=== PATIENT | female | born 1975 | race Hispanic/Latino ===

== ENCOUNTER 2018-11-24 07:34 | Emergency (ER) | payer OTHER ==
--- NOTE | 2018-11-24 07:35 | C.PDOC ---
History Of Present Illness 43 yr old F w/ hx of hypothyroidisim on synthroid p/w abrasion to L anterior asencio x1.5d prior. Pt notes [place] scrap[place]. No fall or ankle or foot pain, neck pain or head impact. She notes her last tetanus shot was approximately 18 months prior. She denies being on any blood thinners. She notes taking x1 doxycycline last night, but notes some pus like drainage from the wound earlier today. No ascending rash noted. No fever, chills or night sweats. No ankle pain or foot pain. No knee pain. No hip pain. No other complaints. Time Seen by Provider: 11/24/18 07:35 Past Medical History Family History: States: Unknown Family Hx Review Of Systems Constitutional: Negative for: Fever, Chills, Sweats, Weakness Eyes: Negative for: Pain, Vision Change ENT: Negative for: Ear Pain Cardiovascular: Negative for: Chest Pain Respiratory: Negative for: Cough, Shortness of Breath Gastrointestinal: Negative for: Nausea, Vomiting, Abdominal Pain Genitourinary: Negative for: Dysuria Musculoskeletal: Negative for: Neck Pain, Shoulder Pain, Arm Pain, Back Pain, Hand Pain, Foot Pain Skin: Positive for: Other (wound to anterior R asencio) Neurological: Negative for: Weakness, Numbness Physical Exam - Physical Exam Appears: Well, Non-toxic Skin: Normal Color, Warm Head: Atraumatic, Normacephalic Eye(s): bilateral: Normal Inspection, PERRL, EOMI Nose: Normal Oral Mucosa: Moist Tongue: Normal Appearing Lips: Normal Appearing Teeth: Normal Dentition Gingiva: Normal Appearing Throat: Normal Neck: Normal, Normal ROM, No Midline Cervical Tenderness Chest: Symmetrical, No Deformity Cardiovascular: Rhythm Regular Respiratory: Normal Breath Sounds Gastrointestinal/Abdominal: Normal Exam Back: Normal Inspection, No CVA Tenderness, No Vertebral Tenderness Extremity: Normal ROM Extremity: Left: Atraumatic, Other (Negative unga ankle and foot b/l. Good N/V status b/l. ~1x2 and ~1x3 cm abrasion to L anterior asencio), Right: Other, Bilateral: Hips Non-Tender, Normal ROM Pulses: Left Dorsalis Pedis: Normal, Right Dorsalis Pedis: Normal Neurological/Psych: Oriented x3, Normal Speech, Normal Cognition Gait: Steady ED Course And Treatment - Laboratory Results Result Diagrams: 11/24/18 08:18 11/24/18 08:18 Medical Decision Making Medical Decision Makin yr old F w/ hx of hypothyroid on synthroid p/w RLE redness and pain. N/V intact in all extremities. No crepitus noted over abrasion site. Negative unga ankle and foot. Previously took 1 round of doxy at home without significant i mprovement. Given recent abx, some discharge from site yesterday will seek labs, xray. She notes she does not need any pain meds at this time. pending xray labs 0821 Xray unremarkable 0830 labs unremarkable bacitracin placed by RN. pt in NAD, remains w/ out any lypmhadentitis, crepitus. No SIRS vitals. given abx here x1 and scripts for home. Given return indications and f/u, clear for d/c home. Pt agreeable to plan. Disposition - Disposition Referrals: Higinio Roger MD [Non-Staff] - Disposition: HOME/ ROUTINE Disposition Time: 08:27 Condition: GOOD Additional Instructions: If you notice any streaking of the wound upwards or worsening redness even with antibiotics return to emergency department. TAJ PROCTOR, thank you for letting us take care of you today. Your provider was Norman Chandler and you were treated for FALL/RT LEG PAIN. The emergency medical care you received today was directed at your acute symptoms. If you were prescribed any medication, please fill it and take as directed. It may take sev eral days for your symptoms to resolve. Return to the Emergency Department if your symptoms worsen, do not improve, or if you have any other problems. Please contact your doctor or call one of the physicians/clinics you have been referred to that are listed on the Patient Visit Information form that is included in your discharge packet. Bring any paperwork you were given at discharge with you along with any medications you are taking to your follow up visit. Our treatment cannot replace ongoing medical care by a primary care provider outside of the emergency department. Thank you for allowing the [facility] team to be part of your care today. If you had an X-Ray or CT scan: A Radiologist will review the ED reading if any change in treatment is needed we will contact you. If you had a blood, urine, or wound culture: It will take several days for the results, if any change in treatment is needed we will contact you. If you had an STI test: It will take 48 hours for the results. Please call after 1 week if you have not heard back. Prescriptions: Cephalexin [Keflex] 500 mg PO Q6H 5 Days #19 capsule Sulfamethoxazole/Trimethoprim [Bactrim DS 800 mg-160 mg] 1 tab PO BID 5 Days #9 tab Instructions: Skin Abrasions, Wound Care (DC), Cellulitis (Skin Infection), Adult (DC) Forms: [facility] [facility] ([place]) - Clinical Impression Clinical Impression: Cellulitis, Abrasion
--- NOTE | 2018-11-24 08:23 | RAD ---
Date of service: 11/24/2018 PROCEDURE: Radiographs of the right tibia and fibula. HISTORY: abrasion COMPARISON: None available TECHNIQUE: Frontal and lateral views obtained. FINDINGS: BONES: No fracture. Nonspecific areas of relative radiolucency in the tibia and fibula are noted There is smooth cortical thickening on the lateral mid fibular shaft-may represent an area of muscle attachment and or prior area of healing cortical fracture. No acute pathology here suspect. JOINT SPACES: Unremarkable. OTHER FINDINGS: Subcutaneous short tubular opacities probably relate to small varicosities. IMPRESSION: No fracture periosteal reaction the area of interest. No gas-forming cellulitis here. No radiopaque foreign body noted. Other findings as above.
[2018-11-24 08:24] LABS: EOS # 0.2 K/uL (0.0-0.7); EOS % 3.9 % (0.0-4.0); HEMOGLOBIN 12.5 g/dL (11.0-16.0); LYMPH # 0.9 K/uL (1.0-4.3); LYMPH % 19.7 % (20.0-40.0); MEAN CELL VOLUME 91.7 fL (81.0-99.0); MEAN CORPUSCULAR HEMOGLOBIN 30.9 pg (27.0-31.0); MEAN CORPUSCULAR HGB CONC 33.7 g/dL (33.0-37.0); MEAN PLATELET VOLUME 9.3 fL (7.2-11.7); MONO # 0.4 K/uL (0.0-0.8); MONO % 8.8 % (0.0-10.0); NEUT # 3.2 K/uL (1.8-7.0); NEUT % 66.6 % (50.0-75.0); RBC 4.04 Mil/uL (3.80-5.20); RED CELL DISTRIBUTION WIDTH 13.9 % (11.5-14.5); WHITE BLOOD COUNT 4.8 K/uL (4.8-10.8)
[2018-11-24] MEDS ORDERED: Tmp-Smz 800 mg-160 mg DS Tab PO STA (08:34)
[2018-11-24 08:37] LABS: ALB/GLOB RATIO 1.5 (1.0-2.1); ALBUMIN 4.1 g/dL (3.5-5.0); ALT/SGPT 16 U/L (9-52); AST/SGOT 23 U/L (14-36); BLOOD UREA NITROGEN 18 mg/dL (7-17); CALCIUM 8.9 mg/dl (8.6-10.4); GFR NON-AFRICAN AMERICAN > 60
[2018-11-24] MEDS ORDERED: Bacitracin 500 Units/gm Oint Foilpak UD ONE (08:43)
[2018-11-24 12:33] VITALS: BP 112/79; PULSE 64; RESP 20; TEMP 98; O2SAT 98
== END 2018-11-24 08:56 | disposition home or self-care (01) ==
LOC: C.ER 07:34
DX: S80.812A Abrasion, left lower leg, initial encounter (principal); L03.116 Cellulitis of left lower limb; W22.8XXA Striking against or struck by other objects, initial encounter; Y92.522 Railway station as the place of occurrence of the external cause

== ENCOUNTER 2019-01-17 08:30 | Outpatient (CLI) | payer OTHER | END 2019-01-17 08:31 | disposition home or self-care (01) | LOC: C.LAB 08:31 | DX: J40 Bronchitis, not specified as acute or chronic (principal) ==